=== PATIENT | male | born 1955 ===

== ENCOUNTER 2017-05-27 20:16 | Inpatient (IN) | payer MEDICARE, OTHER ==
[2017-05-27 20:22] VITALS: BMI 25.7
[2017-05-27] MEDS: Sodium Chloride 0.9% 1,000 ML IV SCH (20:52)
[2017-05-27 20:57] LABS: BASO # 0.04 K/mm3 (0.0-2.0); BASO % 0.7 % (0.0-3.0); EOS # 0.1 (0.0-0.7); EOS % 2.4 % (1.5-5.0); GRAN # 2.23 (1.4-6.5); GRAN % 41.5 % (50.0-68.0); HEMATOCRIT 31.7 % (42.0-52.0); LYMPH # 2.2 (1.2-3.4); LYMPH % 40.3 % (22.0-35.0); MEAN CELL VOLUME 106.7 fl (80.0-105.0); MEAN CORPUSCULAR HGB CONC 34.7 g/dl (31.0-37.0); MONO # 0.8 (0.1-0.6); MONO % 15.1 % (1.0-6.0); RED CELL DISTRIBUTION WIDTH 14.6 % (11.5-14.5); WHITE BLOOD COUNT 5.4 10^3/ul (4.5-11.0)
[2017-05-27 21:08] LABS: ALB/GLOB RATIO 0.9 (1.1-1.8); BILIRUBIN,TOTAL 2.6 mg/dL (0.2-1.3); CALCIUM 8.9 mg/dL (8.4-10.5); POTASSIUM 4.4 mmol/L (3.6-5.0); TOTAL PROTEIN 7.6 g/dL (5.8-8.3)
--- NOTE | 2017-05-27 21:08 | ED PDOC ---
Arrival/HPI - General Chief Complaint: Abdominal Pain Time Seen by Provider: 05/27/17 20:17 Historian: Patient - History of Present Illness Narrative History of Present Illness (Text): 05/27/17 20:30 Isrrael Pereira is a 62 year old male, whose past medical history includes cirrhosis, esopphageal varices, alcohol abuse, and chronic back pain s/p spinal fusion surgery, who presents to the Emergency department complaining of hematemesis today. Patient reports associated abdominal discomfort. Patient denies any fever, chills, chest pain, shortness of breath, diarrhea, urinary symptoms, neck pain, headache, dizziness, or any other complaints. GI: Dr. Westbrook Time/Duration: Other (today) Symptom Onset: Gradual Symptom Course: Unchanged Activities at Onset: Light Context: Home Past Medical History - Provider Review Nursing Documentation Reviewed: Yes - Infectious Disease Hx of Infectious Diseases: None - Cardiac Hx Pacemaker: No - Pulmonary Hx Chronic Obstructive Pulmonary Disease (COPD): No - Neurological Hx Paralysis: No - HEENT Hx HEENT Disorder: No - Renal Hx Renal Failure: No - Endocrine/Metabolic Hx Diabetes Mellitus Type 1: No Hx Diabetes Mellitus Type 2: No - Hematological/Oncological Hx Blood Transfusions: Yes Hx Cirrhosis: Yes - Integumentary Hx Dermatological Disorder: No - Musculoskeletal/Rheumatological Hx Musculoskeletal Disorders: Yes (SPINAL SX. S/P WORK RELATED INJURY) - Gastrointestinal Hx Gastrointestinal Disorders: No - Genitourinary/Gynecological Hx Genitourinary Disorders: No Hx Hematuria: Yes - Psychiatric Hx Substance Use: No - Surgical History Other/Comment: back surgery - Anesthesia Hx Anesthesia Reactions: No Hx Malignant Hyperthermia: No - Suicidal Assessment Feels Threatened In Home Enviroment: No Family/Social History - Physician Review Nursing Documentation Reviewed: Yes Family/Social History: Unknown Family HX Smoking Status: Smoker Currrent Status Unknown Hx Alcohol Use: Yes (QUIT SINCE 03/2016; ABUSE IN PAST) Hx Substance Use: No Allergies/Home Meds Allergies/Adverse Reactions: Allergies No Known Allergies Allergy (Verified 04/12/16 03:51) Home Medications: Home Meds Medication Instructions Recorded Confirmed Aspirin [Ecotrin] 81 mg PO DAILY 04/06/16 05/27/17 Review of Systems - Physician Review All systems were reviewed & negative as marked: Yes - Review of Systems Constitutional: Normal. absent: Fevers Eyes: Normal ENT: Normal Respiratory: Normal. absent: SOB, Cough Cardiovascular: Normal. absent: Chest Pain Gastrointestinal: Vomiting, Hematemesis Genitourinary Male: Normal. absent: Dysuria, Frequency, Hematuria, Urinary Output Changes Musculoskeletal: Normal. absent: Back Pain, Neck Pain Skin: Normal. absent: Rash Neurological: Normal. absent: Headache, Dizziness Endocrine: Normal Hemo/Lymphatic: Normal Psychiatric: Normal Physical Exam Vital Signs Reviewed: Yes Vital Signs Temp Pulse Resp BP Pulse Ox 05/27/17 22:17 87 12 128/83 98 05/27/17 20:17 97.9 F 112 H 20 122/80 100 Temperature: Afebrile Blood Pressure: Normal Pulse: Regular Respiratory Rate: Normal Appearance: Positive for: Well-Appearing, Non-Toxic, Comfortable Pain Distress: None Mental Status: Positive for: Alert and Oriented X 3 - Systems Exam Head: Present: Atraumatic, Normocephalic Pupils: Present: PERRL Extroacular Muscles: Present: EOMI Conjunctiva: Present: Normal Mouth: Present: Moist Mucous Membranes Neck: Present: Normal Range of Motion Respiratory/Chest: Present: Clear to Auscultation, Good Air Exchange. No: Respiratory Distress, Accessory Muscle Use Cardiovascular: Present: Regular Rate and Rhythm, Normal S1, S2. No: Murmurs Abdomen: Present: Normal Bowel Sounds. No: Tenderness, Distention, Peritoneal Signs Back: Present: Normal Inspection Upper Extremity: Present: Normal Inspection. No: Cyanosis, Edema Lower Extremity: Present: Normal Inspection. No: Edema Neurological: Present: GCS=15, CN II-XII Intact, Speech Normal Skin: Present: Warm, Dry, Normal Color. No: Rashes Psychiatric: Present: Alert, Oriented x 3, Normal Insight, Normal Concentration Medical Decision Making ED Course and Treatment: 05/27/17 20:30 Impression: 62 year old male complaining of hematemesis today. Differential Diagnosis included but are not limited to: GI bleed Plan: -- EKG -- Chest X-ray -- Labs, blood type and screen, cardiac enzymes, amylase, lipase, ammonia -- IV fluids -- Zofran -- Protonix -- D5 -- Reassess and disposition Prior Visits: Notes and results from previous visits were reviewed. On 04/06/2016, pt was seen in the Emergency department for hematemesis, dizziness, and lethargy. Pt was admitted to the hospital for further evaluation. Progress Notes: Reviewed EKG, sinus tachycardia at 117 bpm. LAD. Inferior infarct. Non-specific ST/T wave changes. 05/27/17 21:[address] Gonzales, medical territory manager paraprofessional education assistant, made aware of admission. 05/27/17 21:[address] Jane, who is aware and agrees with plan. Accepts pt in to hospitalist service. Pt will be admitted to Telemetry for GI bleed. Pt is no acute distress. Discussed results and hospital observation plan with pt , who is aware and verbalizes understanding. Reviewed radiology, Chest X-ray shows no acute processes. - Lab Interpretations Lab Results: 05/27/17 20:35 05/27/17 20:35 Lab Results 05/27/17 20:35: Ammonia 43 H 05/27/17 20:35: Sodium 142, Potassium 4.4, Chloride 104, Carbon Dioxide 25, Anion Gap 17, BUN 31 H, Creatinine 1.8 H, Est GFR ( Amer) 47, Est GFR ( Non-Af Amer) 39, Random Glucose 112 H, Calcium 8.9, Total Bilirubin 2.6 H, AST 121 H, ALT 49, Alkaline Phosphatase 116, Lactate Dehydrogenase 572, Total Creatine Kinase 24 L, Troponin I 0.01 D, Total Protein 7.6, Albumin 3.7, Globulin 3.9, Albumin/Globulin Ratio 0.9 L, Amylase 173 H, Lipase 313 H 05/27/17 20:35: PT 14.1 H, INR 1.31 H, APTT 27.1 05/27/17 20:35: WBC 5.4, RBC 2.97 L, Hgb 11.0 L, Hct 31.7 L, MCV 106.7 H, MCH 37.0 H, MCHC 34.7, RDW 14.6 H, Plt Count 77 L, MPV 9.0, Gran % 41.5 L, Lymph % ( Auto) 40.3 H, Swift % (Auto) 15.1 H, Eos % (Auto) 2.4, Baso % (Auto) 0.7, Gran # 2.23, Lymph # 2.2, Swift # 0.8 H, Eos # 0.1, Baso # 0.04 05/27/17 20:35: Blood Type O POSITIVE, Antibody Screen Negative, BBK History Checked Patient has bt I have reviewed the lab results: Yes - RAD Interpretation Radiology Orders: 05/27/17 20:35 CHEST PORTABLE [RAD] Stat Ceramic Tile Setter: ED Physician - EKG Interpretation Interpreted by ED Physician: Yes Type: 12 lead EKG - Medication Orders Current Medication Orders: Folic Acid (Folic Acid) 1 mg PO DAILY [facility] Last Admin: 05/30/17 09:59 Dose: 1 mg Hydromorphone HCl (Dilaudid) 0.5 mg IVP Q6H PRN PRN Reason: Pain, severe (8-10) Ceftriaxone Sodium (Rocephin 1 Gram Ivpb) 1 gm in 100 mls @ 100 mls/hr IVPB DAILY [facility] PRN Reason: Protocol Last Admin: 05/30/17 09:53 Dose: 100 mls/hr eMAR Start Stop Document 05/30/17 09:53 DINA (Rec: 05/30/17 09:54 LUIS [id number]) Intravenous Solution Start Date 05/30/17 Start Time 09:54 End Date 05/30/17 End time 10:54 Total Infusion Time 60 Sodium Chloride (Sodium Chloride 0.9%) 1,000 mls @ 100 mls/hr IV .Q10H [facility] Last Admin: 05/30/17 18:33 Dose: Lactulose (Enulose) 30 gm PO TID [facility] Last Admin: 05/30/17 18:31 Dose: Not Given Non-Admin Reason: Patient Refused Lorazepam (Ativan) 2 mg IVP Q6H PRN; Protocol PRN Reason: Anxiety Multivitamins/Minerals (Therapeutic-M Tab) 1 tab PO 0800 [facility] Last Admin: 05/30/17 10:14 Dose: 1 tab Nicotine (Nicoderm Cq) 1 patch TD DAILY [facility] Last Admin: 05/30/17 10:01 Dose: 1 patch MAR Transdermal Patch Site Document 05/30/17 10:01 DINA (Rec: 05/30/17 10:01 [facility] [id number]) Transdermal Patch Site Transdermal Patch Site Right Shoulder Ondansetron HCl (Zofran Inj) 4 mg IVP Q6H PRN PRN Reason: Nausea/Vomiting Pantoprazole Sodium (Protonix Inj) 40 mg IVP Q12 [facility] Last Admin: 05/30/17 09:53 Dose: 40 mg IVP Administration Document 05/30/17 09:53 RKO (Rec: 05/30/17 09:53 RKO [id number]) Charges for Administration # of IVP Administrations 1 Propranolol HCl (Inderal) 10 mg PO TID [facility] Last Admin: 05/30/17 18:31 Dose: 10 mg Thiamine HCl (Vitamin B1 Tab) 100 mg PO DAILY [facility] Last Admin: 05/30/17 09:59 Dose: 100 mg Tobramycin/Dexamethasone (Tobradex Opht Susp) 0 ml OU Q6H [facility] Last Admin: 05/30/17 13:50 Dose: Not Given Non-Admin Reason: Patient Refused Discontinued Medications Guaifenesin (Robitussin) 100 mg PO Q4H PRN PRN Reason: Cough Last Admin: 05/28/17 20:30 Dose: 100 mg Sodium Chloride (Sodium Chloride 0.9%) 1,000 mls @ 80 mls/hr IV .[id number] [facility] Last Admin: 05/28/17 09:24 Dose: 80 mls/hr eMAR Start Stop Document 05/28/17 09:24 RS (Rec: 05/28/17 09:24 RS [id number]) Intravenous Solution Start Date 05/28/17 Start Time 09:24 Octreotide Acetate 1,250 mcg/ (Dextrose) 252.5 mls @ 5.05 mls/hr IV .Q24H [facility]; 25 MCG/HR PRN Reason: Protocol Last Admin: 05/28/17 20:25 Dose: 25.24 mcg/hr, 5.1 mls/hr eMAR Start Stop Document 05/28/17 20:25 MM (Rec: 05/28/17 20:27 MM [id number]) Intravenous Solution Start Date 05/28/17 Start Time 20:25 Titration Intervention Document 05/28/17 20:25 MM (Rec: 05/28/17 20:27 MM [id number]) Titration Intake Waste Amount 0 Container Volume 252.5 Titration Dosing Titration Dose 25.24 IV Rate 5.1 Intake/Decrease Started Folic Acid 1 mg/ Thiamine HCl 100 mg/ Multivitamins/Vitamin C 10 ml/ Dextrose 1 ,011.2 mls @ 100 mls/hr IV .Q10H7M [facility] Last Admin: 05/28/17 20:28 Dose: 100 mls/hr eMAR Start Stop Document 05/28/17 20:28 MM (Rec: 05/28/17 20:28 MM [id number]) Intravenous Solution Start Date 05/28/17 Start Time 20:28 End Date 05/29/17 Magnesium Sulfate 2 gm/ Sodium (Chloride) 104 mls @ 102 mls/hr IVPB ONCE ONE Stop: 05/28/17 11:46 Last Admin: 05/28/17 11:40 Dose: 102 mls/hr eMAR Start Stop Document 05/28/17 11:40 RS (Rec: 05/28/17 11:40 RS [id number]) Intravenous Solution Start Date 05/28/17 Start Time 11:40 End Date 05/28/17 End time 12:40 Total Infusion Time 60 Phytonadione 10 mg/ Sodium (Chloride) 51 mls @ 100 mls/hr IV ONCE ONE Stop: 05/28/17 11:24 Last Admin: 05/28/17 11:39 Dose: 100 mls/hr eMAR Start Stop Document 05/28/17 11:39 RS (Rec: 05/28/17 11:40 RS [email or web address]) Intravenous Solution Start Date 05/28/17 Start Time 11:39 End Date 05/28/17 End time 12:10 Total Infusion Time 31 Magnesium Sulfate 2 gm/ Sodium (Chloride) 104 mls @ 102 mls/hr IVPB Q3H [facility] Stop: 05/28/17 16:32 Last Admin: 05/28/17 15:27 Dose: 102 mls/hr eMAR Start Stop Document 05/28/17 15:27 RS (Rec: 05/28/17 15:27 RS [id number]) Intravenous Solution Start Date 05/28/17 Start Time 15:27 End Date 05/28/17 End time 16:30 Total Infusion Time 63 Sodium Chloride (Sodium Chloride 0.9%) 1,000 mls @ 100 mls/hr IV .Q10H [facility] Lactulose (Enulose) 10 gm PO Q6H [facility] Stop: 05/28/17 22:01 Last Admin: 05/28/17 21:09 Dose: 10 gm Lactulose (Enulose) 20 gm PO BID [facility] Last Admin: 05/29/17 18:36 Dose: 20 gm Ondansetron HCl (Zofran Inj) 4 mg IVP STAT STA Stop: 05/27/17 20:36 Last Admin: 05/27/17 20:51 Dose: 4 mg IVP Administration Document 05/27/17 20:51 JOL (Rec: 05/27/17 20:51 JOL [id number]) Charges for Administration # of IVP Administrations 1 Pantoprazole Sodium (Protonix Inj) 40 mg IVP ONCE STA Stop: 05/27/17 20:36 Last Admin: 05/27/17 20:51 Dose: 40 mg IVP Administration Document 05/27/17 20:51 JOL (Rec: 05/27/17 20:51 JOL [id number]) Charges for Administration # of IVP Administrations 1 Propranolol HCl (Inderal) 5 mg PO BID [facility] Last Admin: 05/29/17 18:36 Dose: 5 mg Propranolol HCl (Inderal) 10 mg PO TID [facility] Last Admin: 05/30/17 15:43 Dose: Propranolol HCl (Inderal) 10 mg PO .EXTRA DOSE ONE Stop: 05/30/17 10:16 Last Admin: 05/30/17 15:42 Dose: Tobramycin/Dexamethasone (Tobradex Opht Susp) 0 ml OU Q4H [facility] Last Admin: 05/28/17 17:21 Dose: 1 drop - Scribe Statement The provider has reviewed the documentation as recorded by the Alban Bhagat Provider Scribe Attestation: All medical record entries made by the Scribe were at my direction and personally dictated by me. I have reviewed the chart and agree that the record accurately reflects my personal performance of the history, physical exam, medical decision making, and the department course for this patient. I have also personally directed, reviewed, and agree with the discharge instructions and disposition. Disposition/Present on Arrival - Present on Arrival Any Indicators Present on Arrival: No History of DVT/PE: No History of Uncontrolled Diabetes: No Urinary Catheter: No History of Decub. Ulcer: No History Surgical Site Infection Following: None - Disposition Have Diagnosis and Disposition been Completed?: Yes Diagnosis: Anemia, Gastrointestinal bleeding Disposition: HOSPITALIZED Disposition Time: 21:30 Condition: FAIR
[2017-05-27 21:10] LABS: INR 1.31 (0.93-1.08); PARTIAL THROMBOPLASTIN TIME 27.1 Seconds (23.7-30.8)
[2017-05-27] MEDS: Octreotide 1,250 MCG in Dextrose 5% In Water 250 ML IV SCH (21:22)
[2017-05-27 21:25] LABS: TROPONIN I 0.01 ng/mL
--- NOTE | 2017-05-28 03:50 | CP.PCM.HP ---
History of Present Illness - History of Present Illness History of Present Illness: Patient was seen when he was in bed # 701-51. Medical record was reviewed. 62 year old male came n with complaint of vomiting with blood x 3 yeasterday , dark color, little amount each time, had abdominal pain all day yeasterday, in umbilical area, no radiation of pain, it was dull pain, no fever no chills but felt hot, no diarrhoea, no constipation, no hematochezia, no chest pain, sob, sweating , palpitation. ALLERGIES:Denies. PMH:Denies. PAST SURGICAL HISTORY:Spine surgery x2. Appendectomy. Left herniorrhaphy. Patient was so upset , refused to answer any questions, stating that many people have asked many questions. So that following history was not available from him. SOCIAL HISTORY: FH: PMD: HOME MEDICATIONS: ROS: Present on Admission - Present on Admission Any Indicators Present on Admission: No History of DVT/PE: No History of Uncontrolled Diabetes: No Urinary Catheter: No Decubitus Ulcer Present: No Review of Systems - Review of Systems Systems not reviewed;Unavailable: Other Review of Systems: Patient is not willing to answer stating that many people asked lot of questions , does not want to talk anymore. Past Patient History - Infectious Disease Hx of Infectious Diseases: None - Tetanus Immunizations Tetanus Immunization: Unknown - Past Medical History & Family History Past Medical History?: No Past Family History: Reviewed and not pertinent - Past Social History Smoking Status: Smoker Currrent Status Unknown - CARDIAC Hx Cardiac Disorders: No Hx Pacemaker: No - PULMONARY Hx Respiratory Disorders: No Hx Chronic Obstructive Pulmonary Disease (COPD): No - NEUROLOGICAL Hx Neurological Disorder: No Hx Transient Ischemic Attacks (TIA): No - HEENT Hx HEENT Problems: No - RENAL Hx Chronic Kidney Disease: No Hx Renal Failure: No - ENDOCRINE/METABOLIC Hx Endocrine Disorders: No Hx Diabetes Mellitus Type 1: No Hx Diabetes Mellitus Type 2: No - HEMATOLOGICAL/ONCOLOGICAL Hx Blood Disorders: Yes Hx Cirrhosis: Yes - INTEGUMENTARY Hx Dermatological Problems: No - MUSCULOSKELETAL/RHEUMATOLOGICAL Hx Musculoskeletal Disorders: Yes (SPINAL SX. S/P WORK RELATED INJURY) - GASTROINTESTINAL Hx Gastrointestinal Disorders: Yes (hemoptesis) - GENITOURINARY/GYNECOLOGICAL Hx Genitourinary Disorders: No Hx Hematuria: Yes - PSYCHIATRIC Hx Emotional Abuse: No Hx Physical Abuse: No - SURGICAL HISTORY Hx Surgeries: Yes Other/Comment: back surgery - ANESTHESIA Hx Anesthesia Reactions: No Hx Malignant Hyperthermia: No Meds Allergies/Adverse Reactions: Allergies Allergy/AdvReac Type Severity Reaction Status Date / Time No Known Allergies Allergy Verified 04/12/16 03:51 Physical Exam - Constitutional Appears: Well, No Acute Distress - Head Exam Head Exam: ATRAUMATIC, NORMAL INSPECTION, NORMOCEPHALIC - Eye Exam Eye Exam: Normal appearance - ENT Exam ENT Exam: Mucous Membranes Dry, Normal External Ear Exam - Neck Exam Neck exam: Positive for: Normal Inspection. Negative for: Lymphadenopathy, Thyromegaly - Respiratory Exam Respiratory Exam: Clear to Auscultation Bilateral, NORMAL BREATHING PATTERN. absent: Accessory Muscle Use, Chest Wall Tenderness, Rales, Rhonchi, Wheezes, Stridor - Cardiovascular Exam Cardiovascular Exam: REGULAR RHYTHM, +S1 (Normal.), +S2 (Normal.). absent: JVD - GI/Abdominal Exam GI & Abdominal Exam: Normal Bowel Sounds, Soft. absent: Diminished Bowel Sounds , Distended, Firm, Guarding, Hernia, Mass, Organomegaly, Pulsatile Mass, Rebound , Rigid, Tenderness - Rectal Exam Rectal Exam: Deferred - Exam Additional comments: Deferred. - Extremities Exam Extremities exam: Positive for: normal inspection - Back Exam Back exam: NORMAL INSPECTION - Neurological Exam Neurological exam: Alert, Oriented x3 - Psychiatric Exam Psychiatric exam: Agitated, Normal Affect, Normal Mood - Skin Skin Exam: Dry, Normal Color Results - Vital Signs Recent Vital Signs: Last Vital Signs Temp 97.9 F 05/27/17 20:17 Pulse 86 05/28/17 02:00 Resp 12 05/27/17 22:17 BP 128/83 05/27/17 22:17 Pulse Ox 98 05/27/17 22:17 - Labs Result Diagrams: 05/27/17 20:35 05/27/17 20:35 Assessment & Plan - Assessment and Plan (Free Text) Assessment: Upper GI bleeding.-NPO. -IV fluids. -Serial H & H. -Sandostatin. -IV protonix. -GI consultation. Alcohol abuse/Withdrawal? -Seizure precautions. -WA protocol. -IV Ativan PRN. Acute Pancreatitis-Repeat S Amylase, Lipase levels. IV Zofran. IV toradol/dilaudid. Sinus tachycardia.-classroom monitor. Back Pain--Analgesic prn. GI/DVT prophylaxis. Anemia-Monitor H & H. Elevated Ammonia level- Monitor. -Lactulose. Renal Insufficiency/Dehydration.--Hydration. -Monitor electrolytes. - Date & Time Date: 05/28/17 Time: 04:09
[2017-05-28] MEDS ORDERED: HYDROmorphone 0.5 mg/0.5 ml ISec IVP PRN (03:55)
[2017-05-28] MEDS: guaiFENesin 100 mg/5 ml Syrup UD PO PRN ×2 (04:36→20:30)
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
[2017-05-28 07:32] LABS: BASO # 0.02 K/mm3 (0.0-2.0); BASO % 0.5 % (0.0-3.0); EOS # 0.1 (0.0-0.7); EOS % 2.5 % (1.5-5.0); GRAN # 1.97 (1.4-6.5); GRAN % 45.5 % (50.0-68.0); HEMATOCRIT 28.3 % (42.0-52.0); LYMPH # 1.7 (1.2-3.4); MEAN CORPUSCULAR HGB CONC 33.9 g/dl (31.0-37.0); MEAN PLATELET VOLUME 9.6 fl (7.0-11.0); MONO # 0.5 (0.1-0.6); MONO % 12.5 % (1.0-6.0); RED CELL DISTRIBUTION WIDTH 14.7 % (11.5-14.5); WHITE BLOOD COUNT 4.3 10^3/ul (4.5-11.0)
[2017-05-28 07:44] LABS: ALB/GLOB RATIO 0.8 (1.1-1.8); BILIRUBIN,TOTAL 2.6 mg/dL (0.2-1.3); CALCIUM 8.4 mg/dL (8.4-10.5); MAGNESIUM 1.1 mg/dL (1.7-2.2); POTASSIUM 4.3 mmol/L (3.6-5.0)
[2017-05-28] MEDS ORDERED: Lactulose 10 gm/15 ml (Rectal Use) PR ONE (07:54)
--- NOTE | 2017-05-28 08:08 | RAD ---
HISTORY: gi bleed COMPARISON: Portable chest 04/06/2016. FINDINGS: LUNGS: No active pulmonary disease. PLEURA: No significant pleural effusion identified, no pneumothorax apparent. CARDIOVASCULAR: Normal. OSSEOUS STRUCTURES: Thoracolumbar scoliotic deformity again appreciated with Cano rods in position at the thoracolumbar spine. VISUALIZED UPPER ABDOMEN: Normal. OTHER FINDINGS: None. IMPRESSION: No acute cardiopulmonary is appreciated in the interval.
[2017-05-28 08:10] LABS: IRON 221 ug/dL (45-180)
[2017-05-28 08:40] LABS: BILIRUBIN,DIRECT 1.2 mg/dL (0.0-0.4)
--- NOTE | 2017-05-28 09:12 | CARD ---
APPROVED REPORT EKG Measurement Heart [id number] ID [id number] <Conclusion> Sinus tachycardia Left axis deviation, LAHB Possible Inferior infarct, old PRWP, possible lead positioning NSSTW changes Prolonged QTc
[2017-05-28] MEDS: Sodium Chloride 0.9% 1,000 ML IV SCH (09:24)
[2017-05-28] MEDS: cefTRIAXone 1 gm 1 GM/100 ML BAG IVPB SCH (10:00)
[2017-05-28 10:21] LABS: HEMATOCRIT 27.7 % (42.0-52.0)
[2017-05-28] MEDS ORDERED: Magnesium Sulfate 2 GM in Sodium Chloride 0.9% 100 ML IVPB ONE (10:45)
[2017-05-28] MEDS ORDERED: Phytonadione 10 MG in Sodium Chloride 0.9% 50 ML IV ONE (10:54)
[2017-05-28 11:30] LABS: INR 1.37 (0.93-1.08)
[2017-05-28] MEDS: Folic Acid 1 MG, Thiamine 100 MG, Multivitamin (MVI) 10 ML in Dextrose 5% In Water 1,00... IV SCH ×2 (14:12→20:28)
[2017-05-28] MEDS: Magnesium Sulfate 2 GM in Sodium Chloride 0.9% 100 ML IVPB SCH ×2 (14:12→15:27)
--- NOTE | 2017-05-28 15:04 | US ---
HISTORY: history of cirrhosis, abdominal pain COMPARISON: None. TECHNIQUE: Sonographic evaluation of the abdomen. FINDINGS: LIVER: Measures 18.3 cm. Diffusely increased echogenicity of the liver parenchyma. Consistent with fatty infiltration. Smooth contour. No mass. No biliary dilatation. GALLBLADDER: Unremarkable. No gallstones. COMMON BILE DUCT: Measures 4 mm. No stones. No dilatation. PANCREAS: Unremarkable as visualized. No mass. No ductal dilatation. RIGHT KIDNEY: Measures 10.4cm. Normal echogenicity. No calculus, mass, or hydronephrosis. LEFT KIDNEY: Measures 9.2cm. Normal echogenicity. No calculus, mass, or hydronephrosis. SPLEEN: Mild splenomegaly. The spleen measures 14.1 cm in greatest dimension. No focal mass. AORTA: No aneurysmal dilatation. IVC: Unremarkable. OTHER FINDINGS: None. IMPRESSION: Mild hepatosplenomegaly. Fatty infiltration of the liver. No evidence of cholelithiasis or cholecystitis. No evidence of hepatic neoplasm.
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
--- NOTE | 2017-05-28 15:25 | CT ---
PROCEDURE: CT Abdomen and Pelvis without intravenous contrast HISTORY: abdominal pain COMPARISON: 04/06/2016 TECHNIQUE: Without contrast.. Contrast Dose: 0 Radiation dose: Total exam DLP = 754.67 mGy-cm. This CT exam was performed using one or more of the following dose reduction techniques: Automated exposure control, adjustment of the mA and/or kV according to patient size, and/or use of iterative reconstruction technique. FINDINGS: LOWER THORAX: Minimal linear scar/ atelectasis in left lower lobe mild cardiomegaly. LIVER: Mild hepatomegaly. The liver measures 18.9 cm craniocaudal. The contour is nodular, suggestive of hepatic cirrhosis. There is no mass. There is no biliary ductal dilatation. GALLBLADDER AND BILE DUCTS: Unremarkable. PANCREAS: Unremarkable. No gross lesion or ductal dilatation. SPLEEN: Mild splenomegaly. The spleen measures 13.5 cm in greatest dimension. There is no focal mass. ADRENALS: Unremarkable. No mass. KIDNEYS AND URETERS: Unremarkable. No hydronephrosis. No solid mass. VASCULATURE: Unremarkable. No aortic aneurysm. BOWEL: Unremarkable. No obstruction. No gross mural thickening. APPENDIX: Not identified. No secondary findings to suggest acute appendicitis. PERITONEUM: Unremarkable. NoMild ascites predominantly about the liver and spleen. Just inferior to the spleen and lateral to the descending colon, there is curvilinear increased soft tissue density within the mesenteric fat (series 2, image 123 through 129). The curvilinear density surrounding lucent fat is suggestive of omental infarct. However, this is in no way a certain diagnosis. The soft tissue density adjacent to the colon could conceivably represent an inflammatory reaction but there is no adjacent colonic mural thickening or diverticular disease. A followup contrast CT is advised in several days to assess for stability. No pneumoperitoneum. LYMPH NODES: Unremarkable. No enlarged lymph nodes. BLADDER: Unremarkable. REPRODUCTIVE: Normal prostate BONES: Lumbar levoscoliosis. Status post multilevel laminectomy and posterior fixation of the thoracolumbar spine, extending from L3 to at least T9. There is compression deformity of the T12 vertebral body unchanged in appearance from 04/06/2016. OTHER FINDINGS: None. IMPRESSION: Hepatic cirrhosis. Mild hepatosplenomegaly. Mild ascites. Possible omental infarct lateral to the descending colon. Followup CT advised to exclude an inflammatory process. No other acute abnormality. Additional findings as above.
[2017-05-28] MEDS ORDERED: Tobramycin/Dexamethasone (Tobradex) Opth Sol (2.5 ml) OU SCH (15:45)
[2017-05-28 17:16] LABS: HEMATOCRIT 27.9 % (42.0-52.0)
[2017-05-28 19:45] LABS: HEMATOCRIT 27.1 % (42.0-52.0)
[2017-05-28] MEDS: Tobramycin/Dexamethasone (Tobradex) Opth Sol (2.5 ml) OU SCH (20:24)
[2017-05-28] MEDS: Octreotide 1,250 MCG in Dextrose 5% In Water 250 ML IV SCH (20:25)
[2017-05-29] MEDS: Tobramycin/Dexamethasone (Tobradex) Opth Sol (2.5 ml) OU SCH ×4 (02:23→23:02)
[2017-05-29 06:00] LABS: BASO # 0.02 K/mm3 (0.0-2.0); BASO % 0.5 % (0.0-3.0); EOS # 0.1 (0.0-0.7); EOS % 3.6 % (1.5-5.0); GRAN # 1.84 (1.4-6.5); GRAN % 47.7 % (50.0-68.0); HEMATOCRIT 26.6 % (42.0-52.0); LYMPH # 1.3 (1.2-3.4); LYMPH % 34.5 % (22.0-35.0); MEAN CELL VOLUME 105.1 fl (80.0-105.0); MEAN CORPUSCULAR HEMOGLOBIN 36.4 pg (25.0-35.0); MEAN CORPUSCULAR HGB CONC 34.6 g/dl (31.0-37.0); MEAN PLATELET VOLUME 8.4 fl (7.0-11.0); MONO # 0.5 (0.1-0.6); MONO % 13.7 % (1.0-6.0); RED CELL DISTRIBUTION WIDTH 14.6 % (11.5-14.5); WHITE BLOOD COUNT 3.9 10^3/ul (4.5-11.0)
[2017-05-29 06:12] LABS: INR 1.24 (0.93-1.08); PARTIAL THROMBOPLASTIN TIME 27.3 Seconds (23.7-30.8)
[2017-05-29 06:32] LABS: ALB/GLOB RATIO 0.8 (1.1-1.8); BILIRUBIN,DIRECT 1.3 mg/dL (0.0-0.4); BILIRUBIN,TOTAL 2.4 mg/dL (0.2-1.3); CALCIUM 8.3 mg/dL (8.4-10.5); POTASSIUM 4.1 mmol/L (3.6-5.0); TOTAL PROTEIN 6.8 g/dL (5.8-8.3)
--- NOTE | 2017-05-29 08:11 | CP.PCM.PN ---
Subjective - Date & Time of Evaluation Date of Evaluation: 05/29/17 Time of Evaluation: 08:10 - Subjective Subjective: PGY2 Progress note for Dr. Mohan Patient seen and examined at bedside in PACU s/p EGD. 2nd florr nursing reported patient was afebrile and had no acute events overnight. Patient was drowsy from procedure. Complained of some headache, dizziness, nausea, and abdominal pain. Patient was NPO this AM for procedure but will be started on liquid diet today as per GI. Results of EGD were discussed with patient and importance of alcohol and tobacco cessation. Complete ROS unobtainable as patient was drowsy s/p procedure. Objective - Vital Signs/Intake and Output Vital Signs (last 24 hours): Temp Pulse Resp BP Pulse Ox 97.8 F 72 20 130/78 99 05/29/17 00:01 05/29/17 06:00 05/29/17 00:01 05/29/17 00:01 05/29/17 00:01 - Medications Medications: Current Medications Guaifenesin (Robitussin) 100 mg PO Q4H PRN PRN Reason: Cough Last Admin: 05/28/17 20:30 Dose: 100 mg Hydromorphone HCl (Dilaudid) 0.5 mg IVP Q6H PRN PRN Reason: Pain, severe (8-10) Octreotide Acetate 1,250 mcg/ (Dextrose) 252.5 mls @ 5.05 mls/hr IV .Q24H [facility]; 25 MCG/HR PRN Reason: Protocol Last Admin: 05/28/17 20:25 Dose: 25.24 mcg/hr, 5.1 mls/hr Ceftriaxone Sodium (Rocephin 1 Gram Ivpb) 1 gm in 100 mls @ 100 mls/hr IVPB DAILY [facility] PRN Reason: Protocol Last Admin: 05/28/17 10:00 Dose: 100 mls/hr Folic Acid 1 mg/ Thiamine HCl 100 mg/ Multivitamins/Vitamin C 10 ml/ Dextrose 1 ,011.2 mls @ 100 mls/hr IV .Q10H7M [facility] Last Admin: 05/28/17 20:28 Dose: 100 mls/hr Lactulose (Enulose) 20 gm PO BID [facility] Lorazepam (Ativan) 2 mg IVP Q6H PRN; Protocol PRN Reason: Anxiety Ondansetron HCl (Zofran Inj) 4 mg IVP Q6H PRN PRN Reason: Nausea/Vomiting Pantoprazole Sodium (Protonix Inj) 40 mg IVP Q12 [facility] Last Admin: 05/28/17 21:10 Dose: 40 mg Tobramycin/Dexamethasone (Tobradex Opht Susp) 0 ml OU Q6H [facility] Last Admin: 05/29/17 02:23 Dose: Not Given - Labs Labs: 05/29/17 05:40 05/29/17 05:40 PT 13.4 Seconds (9.9-11.8) H 05/29/17 05:40 INR 1.24 (0.93-1.08) H 05/29/17 05:40 APTT 27.3 Seconds (23.7-30.8) 05/29/17 05:40 - Constitutional Appears: Non-toxic, No Acute Distress - Head Exam Head Exam: ATRAUMATIC, NORMAL INSPECTION, NORMOCEPHALIC - Eye Exam Eye Exam: EOMI, Normal appearance, PERRL. absent: Conjunctival injection, Scleral icterus Pupil Exam: NORMAL ACCOMODATION - ENT Exam ENT Exam: Mucous Membranes Dry - Neck Exam Neck Exam: Normal Inspection - Respiratory Exam Respiratory Exam: Clear to Ausculation Bilateral, NORMAL BREATHING PATTERN. absent: Accessory Muscle Use, Rales, Rhonchi, Wheezes, Respiratory Distress - Cardiovascular Exam Cardiovascular Exam: REGULAR RHYTHM, RRR, +S1, +S2. absent: Bradycardia, Tachycardia, Murmur - GI/Abdominal Exam GI & Abdominal Exam: Soft, Tenderness (to palpation diffuse), Normal Bowel Sounds. absent: Distended, Firm, Guarding, Rigid, Rebound - Extremities Exam Extremities Exam: Normal Capillary Refill, Normal Inspection. absent: Pedal Edema, Tenderness - Neurological Exam Neurological Exam: Alert, Awake, Oriented x3 - Psychiatric Exam Additional comments: drowsy s/p EGD - Skin Skin Exam: Dry, Intact, Normal Color, Warm Assessment and Plan - Assessment and Plan (Free Text) Assessment: 62yo male PMHx of alcoholic cirrhosis, CKD, chronic back pain, and variceal bleeding presented to ED 05/27 with hematemesis and abdominal pain Plan: Upper GI bleed - likely secondary to esophageal varices likely secondary to portal HTN liekly secondary to decompensated alcoholic cirrhosis - EGD 05/29: Grade II esophageal varices; completely eradicated; banded. 1 cm hiatus hernia; portal hypertensive gasthropathy. Gastritis. Normal examined duodenum. - EGD 03/2016: One column of varices (>5mm) in lower third of esophagus s/p 2 bands with completion eradication. - EGD and Colonoscopy 05/2016: No varices, moderate portal hypertensive gastropathy, 3mm cecum hyperplastic polyp, 7mm ascending tubular adenoma, 4mm sigmoid tubular adenoma, and Grade II internal hemorrhoids. - Propranolol 5mg po bid as ppx for varices - Protonix 40mg ivp bid - Amylase 173 --> 144 likely secondary to multiple episodes of emesis - PT 13.4; INR 1.24; PTT 27.3 - f/u FOBT - GI Dr. Santiago/Pietro on board- help appreciated Decompensated Alcoholic Cirrhosis - MELD 19 - Abdominal u/s 05/28: mild hepatosplenomegaly. Fatty infiltration of the liver. no evidence of cholelithiasis or cholecystitis. no evidence of hepatic neoplasm - CT Abd/pelvis 05/28: hepatic cirrhosis. Mild hepatosplenomegaly. Mild ascites. Possible omental infarct lateral to the descending colon. No other acute abnl. - Hep panel negative - Ammonia: 28 --> 52 --> 59 - Lactulose 20mg po bid - Rocephin 1gm ivpb qdaily Day 2 - GI Dr. Santiago/Pietro on board- help appreciated Pancytopenia - likely secondary to alcoholic cirrhosis - heme/onc: Dr. Cotter consulted- f/u reccs Elevated tumor markers - AFP: 16.6 - CEA: 7.6 - CA 19-9: 71.4 - heme/onc: Dr. Cotter consulted- f/u reccs Alcohol abuse/withdrawal - Alc level <10 - [facility] Protocol - Multivitamin po qdaily - Thiamine po qdaily - Folic acid po qdaily - Ativan 2mg ivp q6 prn - Zofran 4mg ivp q6 prn nausea/vomiting - Alc withdrawal assessment Q4 - Seizure precautions - Counseled in detail on cessation Prerenal Azotemia - likely secondary to dehydration from multiple episodes of emesis and poor PO intake - BUN:Cr 29:1.7 this AM - Patient is on IVF -Monitor Cough - non productive cough; patient has extensive tobacco use hx - CXR: unremarkable - Robitussin 100mg po q4 prn Hx of CKD - Monitor BUN:Cr - NS @ 100cc/hr - avoid nephrotoxic medications Hx of Back pain - chronic - Dilaudid 0.5mg ivp q6 prn pain severe Hx of Tobacco abuse - Counseled in detail on cessation - Nicoderm cq 1 patch TD qdaily GI ppx: Protonix 40mg ivp bid DVT ppx: VTE on hold secondary to UGIB; SCDs Diet: full liquid- ADAT Fluids: NS @ 100cc/hr Precautions: Seizure precautions; Alc withdrawal assessment; PT/OT: dizziness Dispo: will need outpatient follow up for variceal surveillance of eradication Case discussed with Dr. Marques Valdez PGY2
[2017-05-29] MEDS ORDERED: Midazolam 2 MG/2 ML VIAL ONE (09:05)
[2017-05-29] MEDS ORDERED: Propofol 10 mg/ml Inj (20 ML) ONE ×2 (09:05→09:27)
[2017-05-29] MEDS ORDERED: Etomidate 20 mg/10ml Inj IV ONE (09:06)
[2017-05-29] MEDS ORDERED: Sodium Chloride 0.9% 1,000 ML IV SCH (09:45)
--- NOTE | 2017-05-29 12:39 | PN ---
DATE: 05/29/2017 SUBJECTIVE: The patient is seen in recovery room. The patient is seen lying in bed stretcher in the recovery room after endoscopy. Overnight nurses notes were reviewed. PHYSICAL EXAMINATION VITAL SIGNS: T-max afebrile. Telemetry monitoring shows sinus rhythm, heart rate 79 and 82, blood pressure is 144/79, 154/96, 167/87, respirations 16, O2 sat 99%. HEENT: Head examination is normocephalic and atraumatic. HEENT examination shows pale conjunctivae, slightly icteric sclerae. No oropharyngeal lesion. NECK: No neck rigidity. CHEST: Kyphosis. LUNGS: Shows no rales, crackles or wheezing, occasional rhonchi. CARDIOVASCULAR: S1 and S2 regular rhythm. Questionable soft systolic murmur in the left sternal border. ABDOMEN: Slightly tender to palpate. GENITALIA: Male. RECTAL: Deferred. EXTREMITIES: Shows no pitting edema. No swelling. MUSCULOSKELETAL: Shows a body mass index of 24. NEUROLOGIC: Limited. GAIT: Not tested. VASCULAR: Palpable pulses. DIAGNOSTICS: WBC 3.9, hemoglobin/hematocrit 9.2 and 26.6, MCV 105, platelet 157,000. PT/PTT 13.4 and 27.2. Chemistry is significant for BUN 29, creatinine 1.7, glucose 147, calcium 8.3, total bilirubin 2.4, direct bilirubin 1.3, AST 100, ammonia 59, alpha-fetoprotein 16.6. CA-19-9 is 71.4. Hepatitis ABC serologies were negative!. Blood type O positive. The patient's CT of the abdomen and pelvis reviewed. The patient's abdominal CAT scan reviewed. EKG reviewed. The patient underwent endoscopy today. Endoscopy results were reviewed. IMPRESSION: 1. Upper gastrointestinal bleeding. 2. Acute blood loss anemia. 3. Pancytopenia. 4. Distal esophageal grade 2 varices status post banding with complete eradication with deflection of varices. 5. Hiatal hernia. 6. Portal hypertensive gastropathy in the gastric fundus. 7. Diffuse gastric inflammation characterized by edema and congestion and erosion in the gastric antrum. 8. Gastritis. 9. Hypertension. 10. Pancytopenia with macrocytic anemia. 11. Mild coagulopathy. 12. Underlying chronic kidney disease stage II to III. 13. Transaminitis with hyperbilirubinemia. 14. Hyperammonemia. 15. Elevated alpha-fetoprotein of 16.6, elevated carcinoembryonic antigen of 7.6, and elevated CA-19-9 of 71.4. 16. Hyperbilirubinemia. 17. Acute kidney injury with underlying chronic kidney disease stage III. 18. Hyperglycemia. 19. Cardiomegaly with left lower lobe linear scar and atelectasis. 20. Hepatosplenomegaly. 21. Hepatic cirrhosis. 22. Ascites. 23. Questionable omental infarct inferior to spleen and lateral to descending colon. 24. Lumbar levoscoliosis. 25. Status post multilevel laminectomy and posterior fixation of the thoracolumbar spine extending from T9 to L3. 26. T1 and T12 vertebral body compression deformity. 27. Sinus tachycardia. 28. Left anterior hemiblock. 29. Hepatic steatosis. PLAN: At this time, the patient's labs has to be monitored daily. The patient has been ordered repeat CBC, CMP, LFT, magnesium. The patient is currently on Ativan 2 mg IV q.6 p.r.n., D5w banana bag, Dilaudid 0.5 IV q.6 p.r.n., lactulose 20 gram twice a day, Inderal 5 mg twice a day. The patient has been ordered nicotine patch 14 mg, Protonix 40 IV q.12. The patient is on Rocephin 1 gram IV daily. The patient is on TobraDex eye ointment. Zofran 4 mg IV q.6 p.r.n. The patient is on liquid diet, which will be increase by GI. I have spoken to the patient's yesterday, Lucinda Pereira, phone number [phone]. I have explained the patient's about patient's detail, patient's condition, patient's diagnoses. The patient is overall guarded to poor prognosis if the patient continues to drink and smoke and likely would have bleeding to was also explained to the patient's . The patient's was also told about the consequences of the alcoholic liver disease with pancytopenia, which was explained to the patient's at length and the patient also. At present, the patient is to be continued on above therapeutic interventions with close monitoring. We will await further GI recommendation and clearance for possible discharge. Romaine Mohan MD [facility] # [id number]
[2017-05-29] MEDS: cefTRIAXone 1 gm 1 GM/100 ML BAG IVPB SCH (13:27)
[2017-05-29] MEDS: Sodium Chloride 0.9% 1,000 ML IV SCH (13:31)
[2017-05-29 15:12] LABS: IMMUNOGLOBULIN G 1829.1 mg/dL (700.0-1600.0)
[2017-05-29 15:13] LABS: IMMUNOGLOBULIN A 425.3 mg/dL (70.0-400.0); IMMUNOGLOBULIN M 282.1 mg/dL (40.0-230.0)
--- NOTE | 2017-05-29 17:49 | MRI ---
PROCEDURE: MRI Abdomen without contrast HISTORY: COMPARISON: None available. TECHNIQUE: Multisequence, multiplanar MR images of the abdomen without gadolinium contrast enhancement. FINDINGS: Examination was limited due to excessive restrained motion related artifacts filling a few sequences appearing diagnostic. LIVER: The periphery of the liver appears slightly nodular and therefore cirrhotic liver disease is in question. No focal masses grossly evident throughout the liver. No gross intrahepatic biliary dilatation. GALLBLADDER: Moderate gallbladder distention appreciate without cholelithiasis evident. Limited upper abdominal ascites likely creates a hydrops pattern with the gallbladder wall not grossly thickened. SPLEEN: Unremarkable. ADRENALS: Unremarkable. KIDNEYS: Bilateral cortical atrophy is appreciated no discrete mass or obstructive uropathy evident. PANCREAS: No definitive lesion is appreciate throughout the pancreas and the pancreatic duct appears normal caliber throughout. AORTA: No aneurysm. ASCITES: Mild perihepatic and perisplenic ascites is identified. PERITONEUM: Unremarkable. LYMPH NODES: Unremarkable. OTHER FINDINGS: None. IMPRESSION: Markedly limited abdomen MRI due to patient's inability to achieved good compliance in the magnet. No gross pancreatic mass is appreciate however a cirrhotic liver is questioned. There is mild upper abdominal ascites. Bilateral renal cortical atrophy is appreciated.
[2017-05-30] MEDS: Tobramycin/Dexamethasone (Tobradex) Opth Sol (2.5 ml) OU SCH ×4 (02:51→22:06)
[2017-05-30] MEDS: Sodium Chloride 0.9% 1,000 ML IV SCH ×4 (03:03→23:47)
[2017-05-30 07:40] LABS: ALB/GLOB RATIO 0.8 (1.1-1.8); ALKALINE PHOSPHATASE 74 U/L (38-126); ALT/SGPT 36 U/L (7-56); AST/SGOT 93 U/L (17-59); BILIRUBIN,DIRECT 1.8 mg/dL (0.0-0.4); BILIRUBIN,TOTAL 3.1 mg/dL (0.2-1.3); BLOOD UREA NITROGEN 21 mg/dL (7-21); CALCIUM 8.3 mg/dL (8.4-10.5); CARBON DIOXIDE 27 mmol/L (21-33); CHLORIDE 105 mmol/L (98-107); GFR AFRICAN-AMERICAN 50; GLUCOSE,RANDOM 104 mg/dL (70-110); MAGNESIUM 1.7 mg/dL (1.7-2.2); POTASSIUM 3.9 mmol/L (3.6-5.0); SODIUM 139 mmol/L (132-148); TOTAL PROTEIN 6.7 g/dL (5.8-8.3)
[2017-05-30 07:53] LABS: INR 1.26 (0.93-1.08); PARTIAL THROMBOPLASTIN TIME 27.2 Seconds (23.7-30.8)
[2017-05-30 07:55] LABS: BASO # 0.02 K/mm3 (0.0-2.0); BASO % 0.5 % (0.0-3.0); EOS # 0.2 (0.0-0.7); EOS % 4.5 % (1.5-5.0); GRAN # 2.13 (1.4-6.5); GRAN % 50.4 % (50.0-68.0); HEMATOCRIT 27.6 % (42.0-52.0); LYMPH # 1.3 (1.2-3.4); LYMPH % 31.3 % (22.0-35.0); MEAN CELL VOLUME 106.6 fl (80.0-105.0); MEAN CORPUSCULAR HEMOGLOBIN 36.7 pg (25.0-35.0); MEAN CORPUSCULAR HGB CONC 34.4 g/dl (31.0-37.0); MEAN PLATELET VOLUME 9.6 fl (7.0-11.0); MONO # 0.6 (0.1-0.6); MONO % 13.3 % (1.0-6.0); PLATELET COUNT 69 10^3/uL (120.0-450.0); RED CELL DISTRIBUTION WIDTH 14.7 % (11.5-14.5); RETIC% 3.82 % (0.5-1.5); WHITE BLOOD COUNT 4.2 10^3/ul (4.5-11.0)
[2017-05-30 09:12] LABS: FIBRINOGEN 123.2 mg/dL (187-400)
--- NOTE | 2017-05-30 09:14 | PN ---
ONCOLOGY EVALUATION DATE: A 62-year-old man admitted for hematemesis. I spoke with the resident. The patient just had his upper endoscopy with varices and is found to have some abnormal blood tests with slightly abnormal with alpha fetoprotein, that is 16 and CA-19 noted as 71. The initial CAT scan and ultrasound do not show a mass in the liver or in the pancreas. This could very well be positive with abnormal liver function tests. He does have a contour that is suggestive of hepatic cirrhosis on CAT scan of the liver and thus has some mild splenomegaly. I have asked them to order an MRI of the liver and the pancreas to rule out small tumor and pending these results we can make decision to either follow him or to biopsy if they see something abnormal. For now, lets do the MRI. Agustin Salinas MD
--- NOTE | 2017-05-30 09:22 | CP.PCM.PN ---
<Ruslan Cabrera - Last Filed: 05/30/17 13:54> Subjective - Date & Time of Evaluation Date of Evaluation: 05/30/17 Time of Evaluation: 09:00 - Subjective Subjective: PGY4 GI Follow Up Pt seen and examined bedside He states that he still has some perumbilical and epigastric discomfort Denies any nausea or vomiting Denies any BRBPR, melena, or coffee-ground emesis Able to tolerate liquids, wants to advance diet ROS: 10-point ROS conducted, neg other than above Objective - Vital Signs/Intake and Output Vital Signs (last 24 hours): Temp Pulse Resp BP Pulse Ox 98.0 F 72 20 129/67 98 05/30/17 06:00 05/30/17 06:00 05/30/17 06:00 05/30/17 06:00 05/30/17 06:00 Intake and Output: 05/30/17 05/30/17 06:59 18:59 Intake Total 1418 Output Total 700 Balance 718 - Medications Medications: Current Medications Folic Acid (Folic Acid) 1 mg PO DAILY [facility] Guaifenesin (Robitussin) 100 mg PO Q4H PRN PRN Reason: Cough Last Admin: 05/28/17 20:30 Dose: 100 mg Hydromorphone HCl (Dilaudid) 0.5 mg IVP Q6H PRN PRN Reason: Pain, severe (8-10) Ceftriaxone Sodium (Rocephin 1 Gram Ivpb) 1 gm in 100 mls @ 100 mls/hr IVPB DAILY [facility] PRN Reason: Protocol Last Admin: 05/29/17 13:27 Dose: 100 mls/hr Sodium Chloride (Sodium Chloride 0.9%) 1,000 mls @ 100 mls/hr IV .Q10H [facility] Last Admin: 05/30/17 03:03 Dose: 100 mls/hr Lactulose (Enulose) 20 gm PO BID [facility] Last Admin: 05/29/17 18:36 Dose: 20 gm Lorazepam (Ativan) 2 mg IVP Q6H PRN; Protocol PRN Reason: Anxiety Multivitamins/Minerals (Therapeutic-M Tab) 1 tab PO 0800 [facility] Nicotine (Nicoderm Cq) 1 patch TD DAILY [facility] Last Admin: 05/29/17 11:40 Dose: 1 patch Ondansetron HCl (Zofran Inj) 4 mg IVP Q6H PRN PRN Reason: Nausea/Vomiting Pantoprazole Sodium (Protonix Inj) 40 mg IVP Q12 [facility] Last Admin: 05/29/17 23:03 Dose: 40 mg Propranolol HCl (Inderal) 5 mg PO BID [facility] Last Admin: 05/29/17 18:36 Dose: 5 mg Thiamine HCl (Vitamin B1 Tab) 100 mg PO DAILY [facility] Tobramycin/Dexamethasone (Tobradex Opht Susp) 0 ml OU Q6H [facility] Last Admin: 05/30/17 07:47 Dose: Not Given - Labs Labs: 05/30/17 06:00 05/30/17 06:00 PT 13.6 Seconds (9.9-11.8) H 05/30/17 06:00 INR 1.26 (0.93-1.08) H 05/30/17 06:00 APTT 27.2 Seconds (23.7-30.8) 05/30/17 06:00 - Constitutional Appears: Well, No Acute Distress - Head Exam Head Exam: ATRAUMATIC, NORMOCEPHALIC - Eye Exam Eye Exam: Normal appearance - ENT Exam ENT Exam: Mucous Membranes Moist - Respiratory Exam Respiratory Exam: Clear to Ausculation Bilateral, NORMAL BREATHING PATTERN. absent: Prolonged Expiratory Phase, Rales, Rhonchi, Wheezes, Respiratory Distress - Cardiovascular Exam Cardiovascular Exam: REGULAR RHYTHM, +S1, +S2 - GI/Abdominal Exam Additional comments: slightly distended, tender in the epigastric and perumbical area - Extremities Exam Extremities Exam: absent: Joint Swelling, Pedal Edema - Neurological Exam Neurological Exam: Alert, Awake, Oriented x3 - Psychiatric Exam Psychiatric exam: Normal Affect, Normal Mood - Skin Skin Exam: Dry, Intact, Normal Color, Warm Assessment and Plan - Assessment and Plan (Free Text) Assessment: Assessment: 62 year old male with history of chronic back pain, CKD and alcoholic cirrhosis with decompensation 03/2016 2/2 variceal bleed presenting with abdominal pain and hematemesis. Upper GI bleed, s/p variceal banding x2 05/29/17 Decompensated alcoholic cirrhosis Hepatic encephalopathy Noncompliance to medical therapy Dehydration. Plan: >can advance diet >can d/c ocreotide > started on propanolol, can continue as an oupt >continue PPI daily >goal Hb 7-9 for transfusion parameters >MELD 18 05/30 >Prerenal Azotemia 2/2 dehydration, upper GI bleed >Abdominal U/S to assess for ascites or other pathology >Lactulose 20g BID titrate to 2-3 BMs/day >counselled on tobacco and alcohol cessation > Hgb stable > can d/c from GI standpoint f/u with Dr. Westbrook as an outpt for liver w/u >will sign off D/W Dr. Parkinson <Natan Parkinson MD - Last Filed: 05/30/17 17:55> Objective - Vital Signs/Intake and Output Vital Signs (last 24 hours): Temp Pulse Resp BP Pulse Ox 97.8 F 96 H 16 136/76 98 05/30/17 12:00 05/30/17 12:00 05/30/17 12:00 05/30/17 12:00 05/30/17 06:00 Intake and Output: 05/30/17 05/30/17 06:59 18:59 Intake Total 1418 780 Output Total 700 600 Balance 718 180 - Medications Medications: Current Medications Folic Acid (Folic Acid) 1 mg PO DAILY [facility] Last Admin: 05/30/17 09:59 Dose: 1 mg Hydromorphone HCl (Dilaudid) 0.5 mg IVP Q6H PRN PRN Reason: Pain, severe (8-10) Ceftriaxone Sodium (Rocephin 1 Gram Ivpb) 1 gm in 100 mls @ 100 mls/hr IVPB DAILY [facility] PRN Reason: Protocol Last Admin: 05/30/17 09:53 Dose: 100 mls/hr Sodium Chloride (Sodium Chloride 0.9%) 1,000 mls @ 100 mls/hr IV .Q10H [facility] Last Admin: 05/30/17 10:01 Dose: 100 mls/hr Lactulose (Enulose) 30 gm PO TID [facility] Last Admin: 05/30/17 13:58 Dose: 30 gm Lorazepam (Ativan) 2 mg IVP Q6H PRN; Protocol PRN Reason: Anxiety Multivitamins/Minerals (Therapeutic-M Tab) 1 tab PO 0800 [facility] Last Admin: 05/30/17 10:14 Dose: 1 tab Nicotine (Nicoderm Cq) 1 patch TD DAILY [facility] Last Admin: 05/30/17 10:01 Dose: 1 patch Ondansetron HCl (Zofran Inj) 4 mg IVP Q6H PRN PRN Reason: Nausea/Vomiting Pantoprazole Sodium (Protonix Inj) 40 mg IVP Q12 [facility] Last Admin: 05/30/17 09:53 Dose: 40 mg Propranolol HCl (Inderal) 10 mg PO TID [facility] Last Admin: 05/30/17 13:58 Dose: 10 mg Thiamine HCl (Vitamin B1 Tab) 100 mg PO DAILY [facility] Last Admin: 05/30/17 09:59 Dose: 100 mg Tobramycin/Dexamethasone (Tobradex Opht Susp) 0 ml OU Q6H [facility] Last Admin: 05/30/17 13:50 Dose: Not Given - Labs Labs: 05/30/17 06:00 05/30/17 06:00 PT 13.6 Seconds (9.9-11.8) H 05/30/17 06:00 INR 1.26 (0.93-1.08) H 05/30/17 06:00 APTT 27.2 Seconds (23.7-30.8) 05/30/17 06:00 Attending/Attestation - Attestation I have personally seen and examined this patient.: Yes I have fully participated in the care of the patient.: Yes I have reviewed all pertinent clinical information, including history, physical exam and plan: Yes Notes (Text): 05/30/17 17:51 Patient seen with GI fellow at bedside. This is a 62 year old male with history of chronic back pain, CKD and alcoholic cirrhosis with decompensation in setting of variceal bleed presenting with abdominal pain and hematemesis s/p EGd with 2 variceal bands placed. On b camille prophylaxis. Hb stable in past 24 hours. Can discontinue octreotide and continue propranolol. Tolerating solid diet. Councelled regarding alcohol cessation at bedside. MELD 18. Needs close outpatient follow up with Dr Westbrook. Not a liver transplant candidate due to current alcohol abuse. Patient is stable from GI perspective. Low salt diet. Thank you for letting us participate in the care of your patient
[2017-05-30] MEDS: cefTRIAXone 1 gm 1 GM/100 ML BAG IVPB SCH (09:53)
[2017-05-30] MEDS: Propranolol 5 mg Tab PO SCH ×2 (10:13→15:43)
[2017-05-30] MEDS: Multivitamin With Minerals Tab PO SCH (10:14)
[2017-05-31] MEDS: Tobramycin/Dexamethasone (Tobradex) Opth Sol (2.5 ml) OU SCH ×4 (04:30→21:26)
[2017-05-31 06:39] LABS: BASO # 0.01 K/mm3 (0.0-2.0); BASO % 0.3 % (0.0-3.0); EOS # 0.2 (0.0-0.7); EOS % 4.6 % (1.5-5.0); GRAN # 1.76 (1.4-6.5); GRAN % 44.9 % (50.0-68.0); LYMPH # 1.4 (1.2-3.4); LYMPH % 34.4 % (22.0-35.0); MEAN CELL VOLUME 107.1 fl (80.0-105.0); MEAN CORPUSCULAR HEMOGLOBIN 36.5 pg (25.0-35.0); MEAN CORPUSCULAR HGB CONC 34.1 g/dl (31.0-37.0); MEAN PLATELET VOLUME 9.1 fl (7.0-11.0); MONO # 0.6 (0.1-0.6); MONO % 15.8 % (1.0-6.0); RED CELL DISTRIBUTION WIDTH 14.7 % (11.5-14.5); WHITE BLOOD COUNT 3.9 10^3/ul (4.5-11.0)
[2017-05-31 06:40] LABS: ALB/GLOB RATIO 0.8 (1.1-1.8); BILIRUBIN,DIRECT 1.7 mg/dL (0.0-0.4); BILIRUBIN,TOTAL 2.8 mg/dL (0.2-1.3); CALCIUM 8.3 mg/dL (8.4-10.5); MAGNESIUM 1.5 mg/dL (1.7-2.2); POTASSIUM 4.6 mmol/L (3.6-5.0); TOTAL PROTEIN 6.7 g/dL (5.8-8.3)
[2017-05-31 06:49] LABS: INR 1.31 (0.93-1.08); PARTIAL THROMBOPLASTIN TIME 27.8 Seconds (23.7-30.8)
[2017-05-31] MEDS: Multivitamin With Minerals Tab PO SCH (08:11)
[2017-05-31] MEDS: cefTRIAXone 1 gm 1 GM/100 ML BAG IVPB SCH (10:32)
[2017-05-31] MEDS: Sodium Chloride 0.9% 1,000 ML IV SCH ×2 (10:35→14:15)
[2017-05-31] MEDS: Magnesium Sulfate 2 GM in Sodium Chloride 0.9% 100 ML IVPB SCH ×2 (15:43→17:23)
--- NOTE | 2017-05-31 20:20 | PN ---
DATE: 05/31/2017 The patient is seen in room #269 bed #2. The patient is complaining of dizziness when he stands up.. The patient denies any chest pain. Denies any vomiting, denies any hematemesis, denying any denies any rectal bleeding or hematuria. The patient was advanced on his diet. Overnight nurse's notes were reviewed. The patient was found to be alert, awake, oriented x3. No adverse events documented yesterday. The patient slept well. The patient was found to be alert, awake, oriented x3 by the nurses. The patient requested a sleeping pill for the night and slept well. The patient's Vital signs: T-max is 98.7. Telemetry shows sinus rhythm, heart rate in 65-62, blood pressure 121/66, 125/77, 134/78, 142/86, 134/77. Respiration 16, O2 sat is 97 to 99-100%. Head examination normocephalic, atraumatic. HEENT examination shows pinkish pale conjunctivae. Anicteric, slightly icteric sclerae. No oropharyngeal lesion. No neck rigidity. Chest: Examination kyphosis. Lungs: Examination shows no rales, crackles or wheezing. Cardiovascular: Examination S1, S2, regular rhythm. No rales, crackles or wheezing. Abdomen: Soft. Mild voluntary guarding and mild epigastric periumbilical tenderness. No costovertebral angle tenderness. Genitalia: Male. Rectal: Examination is deferred. Extremities show no pitting edema, no calf tenderness, no Homans sign. No asterixis noted. Musculoskeletal: Examination shows a body mass index of 24. Cranial nerves II-XII limited. Gait examination is not tested. DIAGNOSTICS: May 31, WBC 3.9, hemoglobin/hematocrit 9.3/27, MCV 107, platelet 68,000. PT/PTT 14 and 14.1 and 27.82. Fibrinogen is low at 123. Sodium 142, potassium 4.6, chloride 108, CO2 26, anion gap 13, BUN 16, creatinine 1.7, GFR 50, glucose 115, calcium 8.3, magnesium 1.3, total bili 2.8, direct bili 1.7, AST 85, ammonia level down to 20. Urine drug screen and urine ethanol alcohol negative. IgA, IgM and IgG are elevated, hepatitis A, B, C serologies and HIV negative. Blood type O+. MRI of the abdomen noted, the CT of the abdomen and ultrasound of the abdomen noted. IMPRESSION AND PLAN: 1. Status post upper GI bleed and hematemesis. 2. Esophageal variceal bleed status post variceal banding x2. 3. Decompensated alcoholic cirrhosis. 4. Hepatic encephalopathy with hyper ammonemia. 5. History of noncompliance. 6. Dizziness. Etiology undetermined. 7. History of chronic back pain syndrome and status post spinal surgery. 8. Status post hematemesis and variceal bleeding. 9. History of hypertension. 10. Pancytopenia. 11. Macrocytic anemia. 12. Elevated reticulocyte count. 13. Hypofibrinogenemia. 14. Mild coagulopathy. 15. Acute kidney injury with underlying chronic kidney disease stage II and III. 16. Hypomagnesemia. 17. Hyperbilirubinemia and transaminitis. 18. Hyperammonemia. 19. Elevated iron saturation level. 20. Elevated alpha-fetoprotein of 16.6. Elevated carcinoembryonic antigen of 7.6 and elevated CA 19-9 of 71.4. 21. Elevated amylase and lipase (resolved). 22. Elevated IgA, IgM and IgG antibodies level, etiology undetermined at present. 23. Sinus tachycardia. 24. Left anterior hemiblock. 25. Hepatic cirrhosis. 26. Gallbladder wall distention. 27. Abdominal ascites. 28. Questionable hydrops gallbladder. 29. Bilateral renal cortical atrophy. 30. Mild perihepatic and perisplenic ascites. 31. Left lower lobe linear atelectasis and scar. 32. Mild hepatomegaly. 33. Hepatic cirrhosis. 34. Hepatosplenomegaly. 35. Hepatic perisplenic ascites. 36. Questionable omentum infarct. 37. Lumbar level scoliosis. 38. Status post multilevel laminectomy and posterior fixation of the thoracolumbar spine extending from T9-L3. 39. T12 vertebral body, compression deformity and change since March 2016. 40. Status post esophagogastroduodenoscopy. 41. Grade 2 varices of the distal esophagus status post banding times two with complete eradication with deflation of varices. 42. Hiatal hernia. 43. Gastric fundic portal hypertensive gastropathy. 44. Gastric antral congestion edema and erosion with diffuse moderate inflammation. PLAN: Plan at this time, the patient has been ordered serial labs. The patient is complaining of dizziness. The patient has been ordered CT of the head for evaluation. The patient was seen by social services manager case management, physical therapy, physical therapist evaluation was noted. The recommendation by physical therapy is discharge. RECOMMENDATIONS: Home. The patient has been ordered a stat CT of the head for dizziness. The patient's current medications are Ativan 2 mg IV q. 6h, p.r.n. Dilaudid 0.5 mg IV q. 6h. p.r.n., lactulose 30 g t.i.d., folic acid 1 mg daily, Inderal 10 mg three times a day. The patient has been supplemented with magnesium sulfate, nicotine patch daily, Protonix 40 mg daily, Rocephin 1 g IV daily, IV fluid 0.9 normal saline at 100 mL an hour which will be discontinued once the patient starts eating regular diet which has been started today.. The patient has been ordered a multivitamin. Thiamine 100 mg p.o. daily, Zofran 4 mg IV q. 6h, p.r.n. CT head is pending. The patient is started on altered GI hepatic diet, out of bed to chair physical therapy, occupational therapy ordered. I have met with the patient's yesterday, and I have spoken to the patient's day before yesterday and earlier, I have explained to the patient and the patient's about the patient's diagnosis, diagnostic test results, recommendation by all physician involved in the care of the patient. The patient and the patient's was explained about the patient's overall guarded prognosis, if he continues to drink alcohol and continues to smoke the consequences of continued alcohol abuse and smoking was explained to the patient and the patient's including hemorrhage and GI hemorrhage and possibility of was also explained to the patient and the patient's if they acknowledged understood. All questions concerned answered to their satisfaction. Romaine Mohan MD
--- NOTE | 2017-05-31 20:26 | CT ---
EXAM: CT Head Without Intravenous Contrast EXAM DATE/TIME: 05/31/2017 6:14 PM CLINICAL HISTORY: 62 years old, male; Signs and symptoms; Dizziness TECHNIQUE: Axial computed tomography images of the head/brain without intravenous contrast. All CT scans at this facility use one or more dose reduction techniques, viz.: automated exposure control; ma/kV adjustment per patient size (including targeted exams where dose is matched to indication; i.e. head); or iterative reconstruction technique. COMPARISON: Prior head CT of 04/09/2016 FINDINGS: BRAIN: Tiny area of low density is seen in the right basal ganglia, most compatible with an old/chronic lacunar infarct. Areas of hypodensity seen in the white matter bilaterally, nonspecific in appearance, but most likely representing chronic small vessel ischemic changes, in a patient of this age. No significant acute abnormality identified. Diffuse, age-related cortical atrophy and ventriculomegaly. No acute hemorrhage seen within the brain. No acute extra-axial fluid collections visualized. No evidence of significant mass effect within the brain. VENTRICLES: See above. BONES/JOINTS: No acute fractures or other acute bony abnormality noted. SOFT TISSUES: No acute abnormality of the visualized soft tissues is seen. SINUSES: Visualized paranasal sinuses appear clear. MASTOID AIR CELLS: Stable appearance of diffuse sclerosis involving the right mastoid process inferiorly. The mastoid air cells appear clear, however, with no evidence of diffuse mastoiditis. OTHER FINDINGS: Overall, no significant interval change is seen since the prior exam. IMPRESSION: - No acute findings seen within the brain. - See above for remaining findings.
[2017-06-01] MEDS: Tobramycin/Dexamethasone (Tobradex) Opth Sol (2.5 ml) OU SCH ×3 (01:57→10:20)
[2017-06-01 07:11] LABS: BASO # 0.03 K/mm3 (0.0-2.0); BASO % 0.7 % (0.0-3.0); EOS # 0.2 (0.0-0.7); EOS % 4.4 % (1.5-5.0); GRAN # 1.96 (1.4-6.5); GRAN % 43.1 % (50.0-68.0); HEMATOCRIT 27.5 % (42.0-52.0); LYMPH # 1.6 (1.2-3.4); LYMPH % 34.4 % (22.0-35.0); MEAN CORPUSCULAR HEMOGLOBIN 36.6 pg (25.0-35.0); MEAN CORPUSCULAR HGB CONC 34.2 g/dl (31.0-37.0); MEAN PLATELET VOLUME 9.3 fl (7.0-11.0); MONO # 0.8 (0.1-0.6); MONO % 17.4 % (1.0-6.0); RED CELL DISTRIBUTION WIDTH 14.7 % (11.5-14.5); WHITE BLOOD COUNT 4.5 10^3/ul (4.5-11.0)
[2017-06-01 07:20] LABS: INR 1.28 (0.93-1.08); PARTIAL THROMBOPLASTIN TIME 27.8 Seconds (23.7-30.8)
[2017-06-01 07:27] VITALS: BP 152/89; PULSE 64; RESP 20; TEMP 97.6; O2SAT 100
[2017-06-01 07:30] LABS: ALB/GLOB RATIO 0.8 (1.1-1.8); BILIRUBIN,DIRECT 1.5 mg/dL (0.0-0.4); BILIRUBIN,TOTAL 2.3 mg/dL (0.2-1.3); CALCIUM 8.5 mg/dL (8.4-10.5); POTASSIUM 4.6 mmol/L (3.6-5.0); TOTAL PROTEIN 6.8 g/dL (5.8-8.3)
[2017-06-01] MEDS ORDERED: Influenza Vaccine 60 mcg/0.5 mL SYR (4YR UP) IM ONE ×2 (10:00→10:15)
--- NOTE | 2017-06-01 10:01 | PN ---
DATE: 05/30/2017 SUBJECTIVE: The patient is seen lying in bed in room 268, bed 2. Overnight, nurse's notes were reviewed. The patient's is at bedside. The patient slept well without any distress. When I walked into the room, the patient was lying in the bed comfortably watching TV. Upon my arrival, the patient's was at bedside. The patient started complaining of some abdominal pain and constipation. PHYSICAL EXAMINATION: VITAL SIGNS: T-max is 98. Telemetry shows sinus rhythm, heart rate in 80s and 70s beat per minute. Blood pressure averaging in the last 24 around 120s and 130s systolic, diastolic in 60s and 70s. Respirations 16. O2 sat is 96-99%. GENERAL: The patient is seen lying in the bed in room 268, bed 2. The patient's is at bedside. HEENT AND NECK: Head examination normocephalic, atraumatic. HEENT examination shows pinkish pale conjunctivae. Slightly icteric sclerae. No oropharyngeal lesion. No neck rigidity. CHEST: Symmetrical. LUNGS: Examination shows occasional rhonchi. CARDIOVASCULAR: S1, S2, regular rhythm. ABDOMEN: Positive voluntary guarding, slightly tympanic. Positive bowel sounds. Positive . Positive voluntary guarding. Positive . GENITALIA: Male. RECTAL: Examination deferred. EXTREMITIES: Shows no pitting edema, no calf tenderness, or no Homans' sign. NEUROLOGIC: The patient is alert, awake, and oriented x3. Cranial nerves II-XII intact. Gait examination is not tested. VASCULAR: Palpable pulses. DIAGNOSTICS: 05/30/2017, WBC 4.2, hemoglobin and hematocrit 9.5 and 27, MCV 107, platelet 69. Retic count is elevated at 3.82. Sodium 139, potassium 3.9, chloride 105, CO2 of 27, anion gap 11, BUN 21, creatinine 1.7, GFR 50, glucose 104, calcium 8.3, magnesium 1.7. The patient's total bilirubin is elevated at 3.1, direct bilirubin 1.8. AST is 98, ammonia is 74 from today. Vitamin B12 greater than 1000. Drug screen is negative. The patient's immunoglobulin IgA, IgG and IgM are all elevated.. Hepatitis A, B, C serologies and HIV are negative. Blood type is O positive. The patient was ordered an MRI of the brain which was reviewed as per Hematology recommendation. MRI of the abdomen shows hepatic cirrhosis, gallbladder distention without cholelithiasis. Bilateral renal cortical atrophy noted. Positive perihepatic and perisplenic ascites noted. The patient seen by Hematology and Gastroenterology. The patient underwent endoscopy yesterday, the results are reviewed. IMPRESSION: 1. Status post upper gastrointestinal bleeding. 2. Acute blood loss anemia. 3. Pancytopenia. 4. Hematemesis. 5. History of esophageal varices. 6. Status post esophageal variceal banding. 7. Hypertension. 8. Pancytopenia with leukopenia, anemia, and thrombocytopenia. 9. Elevated reticulocyte count. 10. Mild coagulopathy. 11. Acute kidney injury with underlying chronic kidney disease, stage I. 12. Hyperbilirubinemia. 13. Transaminitis. 14. Hyperammonemia. 15. Hepatic cirrhosis. 16. Elevated alpha-fetoprotein, carcinoembryonic antigen and CA 19-9. 17. Active nicotine and alcohol dependence and addiction. 18. Elevated IgA, IgG, and IgM levels. 19. O positive blood type. 20. Nodular cirrhotic liver. 21. Moderate gallbladder distention without cholelithiasis. 22. Hepatic cirrhosis. 23. Bilateral renal cortical atrophy. 24. Perihepatic and perisplenic ascites. 25. Sinus tachycardia. 26. Left anterior hemiblock. 27. Age indeterminate inferior infarct. 28. Status post esophagogastroduodenoscopy and esophageal variceal banding. 29. Alcoholic cirrhosis. 30. Chronic kidney disease, stage I-II. 31. Decompensated alcoholic cirrhosis. 32. Status post upper gastrointestinal bleeding and variceal banding. 33. Hepatic encephalopathy. 34. Poor compliance and noncompliance. 35. Pancytopenia. 36. Hyperbilirubinemia. 37. Constipation. 38. Gait dysfunction. 39. Prerenal kidney injury. PLAN: At this time, the patient's lactulose was increased to 30 g three times a day. The patient has been ordered out of bed to chair; ambulation, physical therapy, and occupational therapy ordered. The patient's current medications are Ativan 2 mg IV q.6 p.r.n., Dilaudid 0.5 mg IV q.4 p.r.n., lactulose increased to 30 g three times a day, folic acid 1 mg daily, Inderal 10 mg 3 times a day, and nicotine patch 14 mg q.24 hours. The patient is on Protonix 40 q.12, Rocephin 1 g IV daily, IV fluid 0.9 normal saline at 100 mL an hour, and multivitamin. Thiamine 100 mg daily and Zofran 4 mg IV q.6 p.r.n. At present, the patient is to be continued on above therapeutic intervention. The patient is awaiting GI followup and clearance. Plan at this time, the patient is seen by Gastroenterology, recommending advancing diet, is stopping the Sandostatin, started Inderal. Continue PPI. Plan at this time, the patient's lactulose is increased to 30 g three times a day. The patient will be continued on above therapeutic intervention. Dictated and electronically signed, not read. Signing off; Romaine Mohan MD
[2017-06-01] MEDS: cefTRIAXone 1 gm 1 GM/100 ML BAG IVPB SCH (10:12)
[2017-06-01] MEDS: Multivitamin With Minerals Tab PO SCH (10:15)
--- NOTE | 2017-06-01 15:43 | DS ---
FINAL PROGRESS NOTE AND DISCHARGE SUMMARY The patient was transferred over to my service on May 28 by the hospitalist service. The patient is seen today in room #565, bed #1. The patient is lying in the bed. The patient is comfortable. Overnight nurse's notes were reviewed. The patient was transferred from telemetry to , the patient ambulated without any assistance by the overnight nurse. PHYSICAL EXAMINATION: VITAL SIGNS: T-max 97.8, pulse 64 to 66, blood pressure 118/69 to 182/89, respiration 18, O2 sat 97% to 100%. HEENT: Head examination is normocephalic and atraumatic. HEENT examination shows pinkish pale conjunctivae, slightly icteric sclerae. No oropharyngeal lesion. NECK: No neck rigidity. CHEST EXAMINATION: Kyphosis. LUNGS EXAMINATION: Shows no rales, crackles or wheezing. CARDIOVASCULAR EXAMINATION: S1 and S2, regular rhythm. ABDOMEN: Soft. Positive bowel sounds. Mild voluntary guarding noted in the periumbilical area. No rebound tenderness. GENITALIA: Male. RECTAL EXAMINATION: Deferred. EXTREMITIES: Show no pitting edema, no calf tenderness and no Homans sign. No asterixis noted. MUSCULOSKELETAL EXAMINATION: Shows a body mass index of 24. NEUROLOGICALLY: Cranial nerves II to XII limited. Gait examination is according to the nurses note. The patient has been ambulating independently. The patient was ordered a CT of the head yesterday for evaluation of dizziness which shows old, chronic lacunar infarct of the right basal ganglia with chronic small-vessel ischemic disease of the brain with right mastoid process diffuse sclerosis without any evidence of diffuse mastoiditis. IMPRESSION, PLAN AND DISCHARGE DIAGNOSES: 1. Status post upper gastrointestinal bleeding and hematemesis. 2. Upper gastrointestinal bleeding secondary to esophageal varices. 3. Active nicotine and alcohol addiction and dependence. 4. History of hypertension. 5. History of noncompliance and poor compliance. 6. Pancytopenia with leukopenia, macrocytic anemia and thrombocytopenia with elevated reticulocyte count. 7. Mild coagulopathy. 8. Chronic kidney disease, stage IV. 9. Hyperbilirubinemia. 10. Hypomagnesemia. 11. Transaminitis. 12. Hyperammonemia 13. Elevated alpha-fetoprotein of 16.6. Elevated CA 19-9 of 71.4. Elevated carcinoembryonic antigen of 7.6. The patient is cleared for discharge. The patient is discharged home with discharge followup with Dr. Mohan within 1 week, with Dr. Mendes within 1 week. Follow up with hematology/oncology, Dr. Carmen Cotter within 1 week for elevated tumor markers. The patient was advised no alcohol, no smoking, no driving. DISCHARGE MEDICATIONS: The patient's discharge meds as per ambulatory orders, which were sent to the pharmacy. The patient's discharge meds are as follows: Folic acid 1 mg daily, lactulose 30 g three times a day, multivitamin tablet daily, nicotine patch 21 mg daily, Protonix 40 mg twice a day, Inderal 10 mg three times a day, thiamine 100 mg daily. During this hospitalization, the patient's diagnoses, treatment plan, management plan, outpatient followup plan and need for close gastroenterology, hematology/oncology followup was explained to the patient and the patient's , Lucinda Pereira, at length. The patient's was physically met over the weekend with the patient. I have explained to the patient and the patient's about the patient's condition, diagnoses and risk and consequences of noncompliance and continued alcohol use and smoking, which they acknowledged to understand. All the questions concerned were explained to the patient and the patient's in layman's language. Time spent in the entire discharge process was more than 45 minutes. Romaine Mohan MD
[2017-06-02 18:47] LABS: LKM-1 Ab (IgG) <=20.0 U (<=20.0)
== END 2017-06-01 14:22 | disposition home or self-care (01) | DRG 368 ==
LOC: ED 20:16 → ERH 22:02 → 2RNO 23:02 → 5RNO 05-31 21:10
PROVIDERS: ADMIT Internal Medicine; ATTEND Internal Medicine
PROC: 06L38CZ Occlusion of Esophageal Vein with Extraluminal Device, Via Natural or Artificial Opening Endoscopic (ICD-10-PCS; principal; 2017-05-29 09:00)
DX: I85.01 Esophageal varices with bleeding (principal); K85.90 Acute pancreatitis without necrosis or infection, unspecified; D61.818 Other pancytopenia; D68.8 Other specified coagulation defects; K76.6 Portal hypertension; N17.9 Acute kidney failure, unspecified; D69.6 Thrombocytopenia, unspecified; N18.3 Chronic kidney disease, stage 3 (moderate); E83.42 Hypomagnesemia; D62 Acute posthemorrhagic anemia; J98.11 Atelectasis; I12.9 Hypertensive chronic kidney disease with stage 1 through stage 4 chronic kidney disease, or unspecified chronic kidney disease; D53.9 Nutritional anemia, unspecified; E86.0 Dehydration; F10.21 Alcohol dependence, in remission; G89.4 Chronic pain syndrome; M54.9 Dorsalgia, unspecified; I35.1 Nonrheumatic aortic (valve) insufficiency; K29.70 Gastritis, unspecified, without bleeding; K31.89 Other diseases of stomach and duodenum; K44.9 Diaphragmatic hernia without obstruction or gangrene; K59.00 Constipation, unspecified; K70.31 Alcoholic cirrhosis of liver with ascites; K72.90 Hepatic failure, unspecified without coma; K76.0 Fatty (change of) liver, not elsewhere classified; K82.8 Other specified diseases of gallbladder; M41.9 Scoliosis, unspecified; Z79.82 Long term (current) use of aspirin; Z87.891 Personal history of nicotine dependence; Z90.49 Acquired absence of other specified parts of digestive tract; Z91.14 Patient's other noncompliance with medication regimen; Z91.19 Patient's noncompliance with other medical treatment and regimen; Z98.1 Arthrodesis status; F10.20 Alcohol dependence, uncomplicated; E80.6 Other disorders of bilirubin metabolism; R74.0 Nonspecific elevation of levels of transaminase and lactic acid dehydrogenase [LDH]; R97.0 Elevated carcinoembryonic antigen [CEA]; R76.8 Other specified abnormal immunological findings in serum; G31.9 Degenerative disease of nervous system, unspecified; R00.0 Tachycardia, unspecified

== ENCOUNTER 2017-07-17 07:50 | Day surgery (SDC) | payer MEDICARE, OTHER ==
[2017-07-10 14:41] VITALS: BMI 23.7
[2017-07-17] MEDS ORDERED: Propofol 10 mg/ml Inj (20 ML) ONE (09:01)
[2017-07-17] MEDS ORDERED: Sodium Chloride 0.9% 1,000 ML IV SCH (09:30)
[2017-07-17 10:28] VITALS: BP 129/80; PULSE 72; RESP 18; TEMP 97.8; O2SAT 100
== END 2017-07-17 11:01 | disposition home or self-care (01) ==
LOC: ENDO 07:50
PROVIDERS: ATTEND Internal Medicine Gastroenterology
DX: K29.70 Gastritis, unspecified, without bleeding (principal); K44.9 Diaphragmatic hernia without obstruction or gangrene; K74.60 Unspecified cirrhosis of liver
CPT/HCPCS: 43239; 88305; 88342; J2704; J3010; J7040 ×2